=== PATIENT | female | born 1960 | race Caucasian/White ===

== ENCOUNTER → 2025-01-17 | Outpatient (CLI) | payer MEDICARE, OTHER | LOC: LAB SHORT 12:40 → LAB 12:40 | DX: N39.0 Urinary tract infection, site not specified (principal) | CPT/HCPCS: 87077; 87086; 87186 ==

== ENCOUNTER → 2025-02-04 | Outpatient (CLI) | payer MEDICARE, OTHER ==
[2025-02-04 11:47] LABS: Bun/Creatinine Ratio 12.4 (12.0-20.0); Calcium, Blood 8.8 mg/dL (8.5-10.1); Creatinine, Blood 1.29 mg/dL (0.40-1.00)
== END ==
LOC: LAB 11:37 → LAB SHORT 11:37
DX: N18.9 Chronic kidney disease, unspecified (principal); N39.0 Urinary tract infection, site not specified; R31.9 Hematuria, unspecified
CPT/HCPCS: 80048; 87077; 87086; 87186

== ENCOUNTER → 2025-08-31 | Outpatient (CLI) | payer MEDICARE, OTHER | LOC: LAB SHORT 11:51 → LAB 11:51 | DX: R31.9 Hematuria, unspecified (principal) | CPT/HCPCS: 88108 ==

== ENCOUNTER → 2025-09-24 | Outpatient (CLI) | payer MEDICARE | LOC: LAB 10:40 | DX: R30.0 Dysuria (principal) ==

== ENCOUNTER 2025-09-29 07:32 | Day surgery (SDC) | payer MEDICARE ==
[~2025-09-29] VITALS: Ht 162.6 cm; Wt 66.7 kg
[2025-09-29] VITALS (10 sets, daily range): BP systolic 100–153; BP diastolic 67–98
[~2025-09-29 07:32] MED LIST: ACYC800 PO; AMLO5 PO; FAMO20 PO; Flonase 0.05% N16 GM; LOSA50 PO; SUMA25 PO
[2025-09-29] MEDS ORDERED: CeFAZolin Sodium 2,000 MG in NS 100 ML IV SCH (08:30)
--- NOTE | 2025-09-29 08:45 | NUR ---
Ambulatory in Day Surgery. History, Chart, Medications and Allergies reviewed before start of procedure. Lungs clear T/O to Auscultation. Patient confirms NPO status and agrees with scheduled surgery. Pre-Op teaching done. Pt verbalizes understanding. Patient States Post-Procedure ride home has been arranged.
[2025-09-29] MEDS ORDERED: Bupivacaine 0.25% Epi 1:200000 30 ML Vial ONE (09:04)
[2025-09-29] MEDS ORDERED: Midazolam HCl 1MG / ML 2ML Vial ONE (09:34)
--- NOTE | 2025-09-29 09:38 | NUR ---
09/29/25 0938 Adrianne Dumont INTO OR 2 @ 0929-SEE ANESTHESIA RECORD. COLON PORTION PERFORMED UNDER MAC.
[2025-09-29] MEDS ORDERED: Ondansetron HCl 2 MG / ML 2ML Vial ONE (11:44)
[2025-09-29] MEDS ORDERED: Metoclopramide HCl 5MG / ML 2ML Vial ONE (11:44)
[2025-09-29] MEDS ORDERED: Ketorolac Tromethamine 30mg Vial ONE (11:44)
[2025-09-29] MEDS ORDERED: Dexamethasone Sod Phos 10 MG/ML 1ML VIAL ONE (11:44)
[2025-09-29] MEDS ORDERED: Ondansetron HCl 2 MG / ML 2ML Vial IV PRN (12:45)
[2025-09-29] MEDS ORDERED: Albuterol 2.5 MG/3 ML VIAL INH PRN (12:45)
[2025-09-29] MEDS ORDERED: FentaNYL Citrate 50 MCG/ML 2 ML Injection IV PRN ×2 (12:45)
[2025-09-29] MEDS ORDERED: HYDROmorphone HCl/Pf 1MG SYR IV PRN ×2 (12:45)
[2025-09-29] MEDS ORDERED: CeFAZolin Sodium 1000 mg Vial ONE (12:45)
--- NOTE | 2025-09-29 14:48 | NUR ---
Discharge instructions reviewed with patient. Patient verbalizes understanding. Copy given to patient to take home. Prescription placed in discharge folder. Extra izabella pads given to pt. Patient States Post-Procedure ride home has been arranged. Discharged via wheelchair to private car for ride home.
== END 2025-09-29 14:50 | disposition home or self-care (01) ==
LOC: ORSCMMR 07:32 → ORD 08:00 → ORSCMMR 09:00 → ORD 09:00 → ORSCMMR 14:50
PROVIDERS: Student in an Organized Health Care Education/Training Program
PROC: 0DBK8ZX Excision of Ascending Colon, Via Natural or Artificial Opening Endoscopic, Diagnostic (ICD-10-PCS; principal; 2025-09-29 09:00)
PROC: 0DBL8ZX Excision of Transverse Colon, Via Natural or Artificial Opening Endoscopic, Diagnostic (ICD-10-PCS; principal; 2025-09-29 09:00)
PROC: 0DBP8ZX Excision of Rectum, Via Natural or Artificial Opening Endoscopic, Diagnostic (ICD-10-PCS; principal; 2025-09-29 09:00)
PROC: 0DBH8ZX Excision of Cecum, Via Natural or Artificial Opening Endoscopic, Diagnostic (ICD-10-PCS; principal; 2025-09-29 09:00)
PROC: 0DBN8ZX Excision of Sigmoid Colon, Via Natural or Artificial Opening Endoscopic, Diagnostic (ICD-10-PCS; principal; 2025-09-29 09:00)
PROC: 0DBM8ZX Excision of Descending Colon, Via Natural or Artificial Opening Endoscopic, Diagnostic (ICD-10-PCS; principal; 2025-09-29 09:00)
PROC: 0HB9XZX Excision of Perineum Skin, External Approach, Diagnostic (ICD-10-PCS; principal; 2025-09-29 09:00)
DX: K62.89 Other specified diseases of anus and rectum (principal); Z12.11 Encounter for screening for malignant neoplasm of colon; D12.0 Benign neoplasm of cecum; D12.2 Benign neoplasm of ascending colon; D12.3 Benign neoplasm of transverse colon; D12.4 Benign neoplasm of descending colon; K62.1 Rectal polyp; K57.30 Diverticulosis of large intestine without perforation or abscess without bleeding; I10 Essential (primary) hypertension; Z79.899 Other long term (current) drug therapy
CPT/HCPCS: 82947; 88305; J0690; J1100; J1885; J2250; J2405; J2704; J2765; J7120